=== PATIENT | male | born 1975 | race African-American/Black ===

== ENCOUNTER 2019-03-22 23:15 | Emergency (ER) | payer OTHER ==
[~2019-03-22] VITALS: Ht 170.2 cm; Wt 84.8 kg
[2019-03-22 23:30] VITALS: BP 151/87
[2019-03-22] MEDS ORDERED: LIDOCAINE-MPF 1%, 5ML ONE (23:40)
--- NOTE | 2019-03-22 23:44 | NUR ---
HUMAN RESOURCES PROJECT COORDINATOR: PT BLEEDING FROM L HAND LAC IN TRIAGE. TAKEN TO ROOM WITH RN. PRESSURE DRESSING APPLIED. LIDO AT BEDSIDE. DIGIT APPROPRIATE COLOR
[2019-03-22] MEDS ORDERED: PLEASE ENTER ALLERGIES MC SCH (23:45)
[2019-03-23] MEDS ORDERED: LIDOCAINE-MPF 1%, 5ML INFIL ONE
[2019-03-23] MEDS ORDERED: DIPH,PERTUSS(ACELL),TET VAC/PF 0.5 ML IM-VACC ONE ×2 (00:56)
[2019-03-23] MEDS ORDERED: NEOSPORIN OINT. PKT 1 PACKET ONE (01:05)
== END 2019-03-23 01:26 | disposition home or self-care (01) ==
LOC: ED 03-23 01:20
DX: S61.211A Laceration without foreign body of left index finger without damage to nail, initial encounter (principal); X58.XXXA Exposure to other specified factors, initial encounter; Y93.89 Activity, other specified; Y92.009 Unspecified place in unspecified non-institutional (private) residence as the place of occurrence of the external cause; Y99.8 Other external cause status
CPT/HCPCS: 12041; 90471; 90715